=== PATIENT | male | born 1965 | race Caucasian/White ===

== ENCOUNTER → 2016-05-01 | Outpatient (REF) | payer OTHER ==
[~2016-05-01] MED LIST: ATOR1TAB21 PO; ELIQ5TAB PO; FOLI1TAB2 PO; IBUP800T23 PO; LISI40TAB PO; NICO14PA TD; PERCOCET PO; THIA50CA PO; VITMTA PO; XARE15TA PO
[2016-05-01 17:37] LABS: ALBUMIN/GLOBULIN RATIO 1.18 (1.00-1.93); BILIRUBIN,TOTAL 0.5 MG/DL (0.2-1.0); CREATININE FOR GFR 1.54 MG/DL (0.70-1.30); POTASSIUM SERUM 4.2 MEQ/L (3.5-5.1); TOTAL PROTEIN 7.4 GM/DL (6.4-8.2)
== END ==
LOC: M SFHCCAPE 08:42
PROVIDERS: ATTEND Physician Assistant
DX: I10 Essential (primary) hypertension (principal)

== ENCOUNTER → 2016-05-06 | Outpatient (REF) | payer OTHER | LOC: M SFHCCAPE 09:48 | PROVIDERS: ATTEND Physician Assistant | DX: R79.89 Other specified abnormal findings of blood chemistry (principal) ==

== ENCOUNTER → 2016-05-14 | Outpatient (CLI) | payer OTHER ==
--- NOTE | 2016-05-15 05:00 | REP ---
Clinical: Elevated renal function tests. Technique: Real time james scale ultrasound examination using curved array transducer. Findings: Right kidney is normal in contour, size, echogenicity, and reniform shape without hydronephrosis, nephrolithiasis, mass lesion or perinephric fluid. Right kidney measures 10.1 x 5.7 x 5.3 cm with a 2.8 cm simple lower pole cortical cyst. Left kidney is normal in contour, size, echogenicity, and reniform shape without hydronephrosis, nephrolithiasis, mass lesion or perinephric fluid. Left kidney measures 11.2 x 5.3 x 5.9 cm with two mid pole simple cortical/exophytic cysts measuring 2.9 cm and 1.7 cm diameter. Bladder is unremarkable and currently measures 10.8 x 5.5 x 7.4 cm. Impression: Few simple appearing bilateral cysts. Otherwise normal renal ultrasound. Signed by Yann Philip MD 05/15/2016 04:52 A
== END ==
LOC: M RAD 12:26
PROVIDERS: ATTEND Physician Assistant
DX: N28.1 Cyst of kidney, acquired (principal)

== ENCOUNTER → 2016-05-22 | Outpatient (CLI) | payer OTHER ==
--- NOTE | 2016-05-22 09:59 | REP ---
Radionuclide pulmonary ventilation and perfusion scan: The study is performed with DTPA aerosol radiolabeled with 1 mCi of technetium 99m followed by intravenous MAA radiolabeled with 5.5 mCi of technetium 95. Comparisons are the pulmonary artery CT angiogram dated 08/22/2015 and a PA and lateral chest performed today. There are no perfusion defects. There are no ventilation defects. Impression: Normal pulmonary VQ scan. No evidence of pulmonary embolus. Signed by Moy Pierre MD 05/22/2016 09:50 A
--- NOTE | 2016-05-22 10:00 | REP ---
PA and lateral chest: Comparison is 08/24/2015. The previous bibasilar infiltrates and previous bilateral pleural effusions have resolved. The lung aquino are clear. The cardiac size is normal The lucrecia, mediastinum, and bony thorax are unremarkable. Impression: Negative PA and lateral chest. Signed by Moy Pierre MD 05/22/2016 09:51 A
== END ==
LOC: M RAD 08:43
PROVIDERS: ATTEND Internal Medicine Pulmonary Disease
DX: R06.00 Dyspnea, unspecified (principal)

== ENCOUNTER → 2016-05-28 | Outpatient (CLI) | payer OTHER ==
--- NOTE | 2016-05-28 16:45 | ECHO ---
DATE OF PROCEDURE: 05/28/2016 AGE: 51 GENDER: Male HEIGHT: 68 inches WEIGHT: 215 pounds BODY SURFACE AREA: 211 sq m OUTPATIENT. REFERRING PHYSICIAN: Dr. Davila INDICATION: Dyspnea. MEASUREMENTS: 2D MEASUREMENTS: RV: 3.9 cm LV: 4.6 cm Septum: 1.1 cm Posterior wall: 1.0 cm Aortic root: 3.6 cm LA: 3.3 cm LVEF: 60% DOPPLER MEASUREMENTS: AV: 0.96 m/s LVOT: 0.86 m/s LVOT diameter: 2.2 cm MV-E: 45, A: 71, EA ratio: 0.6 Early mitral deceleration time: 268 ms E-prime: 5.3, A-prime: 8.5, E/E-prime ratio: 8.6 PV: 0.8 m/s Pulmonary artery acceleration time: 137 ms PASP: 21 mmHg IVC: 1.7 cm COMMENTS: Normal sinus rhythm without intraventricular conduction disturbance. Technically challenging study in light of the patient's body habitus but diagnostically useful information was still obtained. Normal cardiac chamber sizes and LV wall thickness. On real-time imaging from the parasternal and projections wall motion was symmetrical and normal. Normal-appearing mitral valvular apparatus and leaflet excursion with no posterior systolic buckling. Three equal size aortic cusps of normal thickness and cusp separation. Normal aortic root size. No apparent intracardiac mass or pericardial effusion. Color flow Doppler study taken from the parasternal and projection showed trace mitral and tricuspid but no aortic insufficiency (physiological findings). Guided continuous wave Doppler of his aortic valve showed a normal peak systolic velocity against left ventricle (LV) outflow tract obstruction. Pulsed and continuous wave Doppler of his LV inflow tract taken from the apical four-chamber projection showed normal diastolic filling velocities against mitral stenosis. There was slightly more prominent late diastolic / atrial dependent filling pattern in keeping with a degree of LV diastolic dysfunction. This was confirmed by a prolonged early mitral deceleration time and tissue Doppler of his mitral annulus. His estimated mean left atrial pressure however was well within normal limits using pulsed and tissue Doppler of mitral annulus. Pulsed and continuous wave Doppler of his pulmonary trunk showed a normal peak systolic velocity against right ventricle (RV) outflow tract obstruction. His pulmonary artery acceleration time was normal against an elevated pulmonary vascular resistance or pulmonary hypertension. We attempted to obtain further estimate of his right ventricular systolic pressure using guided continuous wave Doppler of his tricuspid valve but could not get a clear spectral envelope. His inferior vena cava was of normal size with normal respiratory collapse against an elevated central venous pressure. CONCLUSIONS: Normal left ventricular size, wall thickness and wall motion. Normal left atrial size but Doppler evidence of an impairment of LV diastolic relaxation, but currently normal estimated mean left atrial pressure. Normal right heart chamber sizes and estimated pulmonary arterial pressure.
== END ==
LOC: M CARPUL 08:32
PROVIDERS: ATTEND Internal Medicine Pulmonary Disease
DX: R06.00 Dyspnea, unspecified (principal)

== ENCOUNTER → 2016-07-11 | Outpatient (CLI) | payer OTHER ==
[2016-07-11 14:35] LABS: BASO # 0.1 K/mm3 (0.0-0.2); BASO % 1.3 % (0.0-1.0); EOS # 0.2 K/mm3 (0.0-0.50); EOS % 2.6 % (0.0-3.0); LARGE UNSTAINED CELL # 0.2 K/mm3 (0.0-0.4); LARGE UNSTAINED CELL % 2.5 % (0.0-4.0); LYMPH # 3.7 K/mm3 (1.5-4.5); LYMPH % 40.9 % (24.0-44.0); MEAN CORPUSCULAR HEMOGLOBIN 30.2 pg (27.0-33.0); MEAN CORPUSCULAR HGB CONC 35.4 g/dl (32.0-36.5); MEAN CORPUSCULAR VOLUME 85.3 fl (80.0-96.0); MONO # 0.7 K/mm3 (0.0-0.8); MONO % 7.4 % (0.0-5.0); NEUTROPHILS # 4.1 K/mm3 (1.8-7.7); NEUTROPHILS % 45.2 % (36.0-66.0); PLATELET COUNT, AUTOMATED 271 k/mm3 (150-450); RED CELL DISTRIBUTION WIDTH 12.9 % (11.5-14.5)
[2016-07-11 14:47] LABS: ALBUMIN/GLOBULIN RATIO 1.21 (1.00-1.93); ALKALINE PHOSPHATASE 64 U/L (45-117); ALT/SGPT 47 U/L (12-78); ANION GAP 7 MEQ/L (8-16); AST/SGOT 28 U/L (15-37); BILIRUBIN,TOTAL 0.5 MG/DL (0.2-1.0); BLOOD UREA NITROGEN 18 MG/DL (7-18); CALCIUM LEVEL 9.2 MG/DL (8.5-10.1); CARBON DIOXIDE LEVEL 30 MEQ/L (21-32); CHLORIDE LEVEL 101 MEQ/L (98-107); CREATININE FOR GFR 1.33 MG/DL (0.70-1.30); GLOMERULAR FILTRATION RATE > 60.0 (>56); GLUCOSE, FASTING 99 MG/DL (70-105); POTASSIUM SERUM 3.7 MEQ/L (3.5-5.1); SODIUM LEVEL 138 MEQ/L (136-145); TOTAL PROTEIN 7.3 GM/DL (6.4-8.2)
[2016-07-14 00:06] LABS: PROTEIN C ANTIGEN 90 % (60-150); PROTEIN S ANTIGEN FREE 180 % (57-157); PROTEIN S ANTIGEN TOTAL 121 % (60-150)
== END ==
LOC: M LAB 13:30
PROVIDERS: ATTEND Physician Assistant
DX: Z86.711 Personal history of pulmonary embolism (principal)

== ENCOUNTER → 2016-07-14 | Outpatient (CLI) | payer OTHER ==
--- NOTE | 2016-07-14 10:06 | REP ---
RENAL AND BLADDER ULTRASOUND: Real-time sonographic evaluation of the kidney is performed and demonstrates both kidneys to be normal in size and echotexture, right kidney measuring 10.7 x 6.1 x 5.8 cm and the left kidney 11.2 x 5.0 x 5.5 cm. There are no hydronephrosis bilaterally. A cyst in the lower right kidney measures 2.7 x 2.5 x 2.5 cm. A cyst in the left mid kidney measures 2.9 x 3.4 x 2.3 cm. The urinary bladder is mildly distended. Ureteral jets could not be visualized with Doppler color evaluation. The bladder measures 5.8 x 5.7 x 4.1 cm. The prostate appears prominent in size, 4.3 x 4.1 x 3.1 cm. IMPRESSION: No hydronephrosis. There is a cyst in each kidney. Suboptimal distention of the urinary bladder with no gross mass or calculus. Signed by Moy Littlejohn MD 07/14/2016 03:53 P
== END ==
LOC: M RAD 08:22
PROVIDERS: ATTEND Internal Medicine Nephrology
DX: N28.1 Cyst of kidney, acquired (principal); N32.89 Other specified disorders of bladder; I10 Essential (primary) hypertension; R31.9 Hematuria, unspecified; N18.2 Chronic kidney disease, stage 2 (mild)

== ENCOUNTER → 2016-11-05 | Outpatient (REF) | payer OTHER ==
[~2016-11-05] MED LIST changes: -FOLI1TAB2 PO; +FOLI1TAB4 PO; +IBUP1TAB7 PO; -IBUP800T23 PO
[2016-11-05 16:59] LABS: BASO # 0.1 K/mm3 (0.0-0.2); BASO % 0.9 % (0.0-1.0); EOS # 0.2 K/mm3 (0.0-0.50); EOS % 1.9 % (0.0-3.0); LARGE UNSTAINED CELL # 0.2 K/mm3 (0.0-0.4); LARGE UNSTAINED CELL % 1.8 % (0.0-4.0); LYMPH # 3.9 K/mm3 (1.5-4.5); LYMPH % 36.2 % (24.0-44.0); MEAN CORPUSCULAR HGB CONC 35.5 g/dl (32.0-36.5); MEAN CORPUSCULAR VOLUME 84.4 fl (80.0-96.0); MONO # 0.6 K/mm3 (0.0-0.8); NEUTROPHILS # 5.4 K/mm3 (1.8-7.7); NEUTROPHILS % 53.2 % (36.0-66.0); PLATELET COUNT, AUTOMATED 294 k/mm3 (150-450); WHITE BLOOD COUNT 10.2 K/mm3 (4.0-10.0)
[2016-11-05 17:48] LABS: ALBUMIN 3.8 GM/DL (3.2-5.2); BILIRUBIN,TOTAL 0.5 MG/DL (0.2-1.0); CALCIUM LEVEL 9.2 MG/DL (8.5-10.1); CREATININE FOR GFR 1.36 MG/DL (0.70-1.30); FREE T4 1.22 NG/DL (0.76-1.46); GLOMERULAR FILTRATION RATE 58.8 (>56); POTASSIUM SERUM 4.1 MEQ/L (3.5-5.1); TOTAL PROTEIN 7.6 GM/DL (6.4-8.2)
== END ==
LOC: M SFHCCAPE 08:18
PROVIDERS: ATTEND Physician Assistant
DX: E78.5 Hyperlipidemia, unspecified (principal)

== ENCOUNTER → 2016-11-26 | Outpatient (REF) | payer OTHER ==
[2016-11-26 15:43] LABS: SQUAMOUS EPITHELIAL CELL URINE SMALL AMOUNT /hpf (SMALL AMT); WBC, URINE 0-1 /hpf (0-3)
[2016-11-26 15:44] LABS: BACTERIA, URINE NONE SEEN; HYALINE CAST, URINE NONE SEEN /lpf (0-1); MICROSCOPIC EXAM PERFORMED
[2016-11-26 15:49] LABS: RBC, URINE 0-1 /hpf (0-3)
== END ==
LOC: M LAB REF 13:10
PROVIDERS: ATTEND Internal Medicine Nephrology
DX: R31.9 Hematuria, unspecified (principal)

== ENCOUNTER → 2017-01-14 | Outpatient (REF) | payer OTHER | LOC: M SFHCPLAZ 09:54 | PROVIDERS: ATTEND Family Medicine | DX: M1A.9XX0 Chronic gout, unspecified, without tophus (tophi) (principal); E66.9 Obesity, unspecified; R76.0 Raised antibody titer ==

== ENCOUNTER → 2017-01-30 | Outpatient (REF) | payer OTHER ==
[2017-02-05 00:08] LABS: APTT 24.3 sec (.); Anticardiolipin Ab, IgA <10 APL (.); DRVTT Screen Seconds 35.9 sec (.); PROTEIN C ANTIGEN 68 % (60-150); PROTEIN S ANTIGEN FREE 185 % (57-157); PROTEIN S ANTIGEN TOTAL 102 % (60-150)
== END ==
LOC: M LAB REF 13:14
PROVIDERS: ATTEND Internal Medicine Medical Oncology
DX: M32.9 Systemic lupus erythematosus, unspecified (principal)

== ENCOUNTER → 2017-06-25 | Outpatient (CLI) | payer OTHER | LOC: M RAD 08:04 | DX: I82.403 Acute embolism and thrombosis of unspecified deep veins of lower extremity, bilateral (principal) | CPT/HCPCS: 93970 ==

== ENCOUNTER → 2017-07-10 | Outpatient (CLI) | payer OTHER ==
[~2017-07-10] MED LIST changes: -ATOR1TAB21 PO; -ELIQ5TAB PO; -FOLI1TAB4 PO; -IBUP1TAB7 PO; +ISOVUE-300 61% 50ML VIAL (Q9967) As Ordered; +LIDOCAINE 2% MDV 20 ML VIAL As Ordered; -LISI40TAB PO; +MIDAZOLAM INJ 2 MG/2 ML VIAL (J2250) As Ordered; -NICO14PA TD; -PERCOCET PO; -THIA50CA PO; -VITMTA PO; -XARE15TA PO; +fentaNYL 100 MCG/2 ML INJECTION (J3010) As Ordered
== END | disposition home or self-care (01) ==
LOC: M IRPRO 09:19
DX: Z45.89 Encounter for adjustment and management of other implanted devices (principal); Z86.718 Personal history of other venous thrombosis and embolism; Z86.711 Personal history of pulmonary embolism; I12.9 Hypertensive chronic kidney disease with stage 1 through stage 4 chronic kidney disease, or unspecified chronic kidney disease; N18.9 Chronic kidney disease, unspecified
CPT/HCPCS: 37193

== ENCOUNTER → 2017-07-16 | Outpatient (REF) | payer OTHER ==
[2017-07-16 16:07] LABS: URIC ACID 6.7 MG/DL (3.5-7.2)
[2017-07-16 16:14] LABS: ESTIMATED AVERAGE GLUCOSE 123 MG/DL (60-110); HEMOGLOBIN A1c 5.9 %
== END ==
LOC: M SFHCPLAZ 10:40
DX: R73.03 Prediabetes (principal); M1A.9XX0 Chronic gout, unspecified, without tophus (tophi)
CPT/HCPCS: 83036

== ENCOUNTER → 2017-07-24 | Outpatient (REF) | payer OTHER ==
[2017-07-24 12:00] LABS: HEPATITIS C VIRUS ABY INDEX 0.1 INDEX (<0.8)
== END ==
LOC: M SFHCPLAZ 08:35
DX: Z11.59 Encounter for screening for other viral diseases (principal)

== ENCOUNTER → 2017-10-21 | Outpatient (REF) | payer OTHER ==
[2017-10-21 15:41] LABS: ANION GAP 6 MEQ/L (8-16); BLOOD UREA NITROGEN 13 MG/DL (7-18); CALCIUM LEVEL 9.4 MG/DL (8.5-10.1); CARBON DIOXIDE LEVEL 28 MEQ/L (21-32); CHLORIDE LEVEL 107 MEQ/L (98-107); CHOLESTEROL LEVEL 92 MG/DL (<200); CREATININE FOR GFR 1.08 MG/DL (0.70-1.30); GLOMERULAR FILTRATION RATE > 60.0 (>56); GLUCOSE, FASTING 94 MG/DL (70-100); HDL CHOLESTEROL 40 MG/DL (>40); NON-HDL-C 52 MG/DL; POTASSIUM SERUM 4.7 MEQ/L (3.5-5.1); SODIUM LEVEL 141 MEQ/L (136-145); TRIGLYCERIDES LEVEL 125 MG/DL (<150); URIC ACID 6.2 MG/DL (3.5-7.2)
[2017-10-21 16:43] LABS: ESTIMATED AVERAGE GLUCOSE 114 MG/DL (60-110); HEMOGLOBIN A1c 5.6 %
== END ==
LOC: M SFHCPLAZ 10:48
DX: R73.03 Prediabetes (principal); E78.5 Hyperlipidemia, unspecified; I12.9 Hypertensive chronic kidney disease with stage 1 through stage 4 chronic kidney disease, or unspecified chronic kidney disease; N18.3 Chronic kidney disease, stage 3 (moderate); M1A.9XX0 Chronic gout, unspecified, without tophus (tophi)
CPT/HCPCS: 84550

== ENCOUNTER → 2018-04-26 | Outpatient (REF) | payer OTHER ==
[~2018-04-26] MED LIST changes: +ATOR1TAB21 PO; +ELIQ5TAB PO; +FOLI1TAB11 PO; +IBUP1TAB7 PO; -ISOVUE-300 61% 50ML VIAL (Q9967) As Ordered; -LIDOCAINE 2% MDV 20 ML VIAL As Ordered; +LISI40TAB PO; -MIDAZOLAM INJ 2 MG/2 ML VIAL (J2250) As Ordered; +NICO14PA TD; +PERCOCET PO; +THIA50CA PO; +VITMTA PO; +XARE15TA PO; -fentaNYL 100 MCG/2 ML INJECTION (J3010) As Ordered
[2018-04-26 14:25] LABS: HEMOGLOBIN A1c 5.8 %
== END ==
LOC: M SFHCPLAZ 10:07
PROVIDERS: ATTEND Family Medicine
DX: R73.03 Prediabetes (principal)

== ENCOUNTER → 2018-06-16 | Outpatient (REF) | payer OTHER ==
[2018-06-16 13:52] LABS: BACTERIA, URINE AUTO 1+ (NEGATIVE); RBC, URINE AUTO 1 /HPF (0-3); SQUAMOUS EPITHELIAL CELL UR AU 0 /HPF (0-6); WBC, URINE AUTO 0 /HPF (0-3)
== END ==
LOC: M LAB REF 13:01
PROVIDERS: ATTEND Internal Medicine Nephrology
DX: R31.9 Hematuria, unspecified (principal)

== ENCOUNTER → 2018-07-28 | Outpatient (REF) | payer OTHER ==
[~2018-07-28] MED LIST changes: +LISI40TA52 PO; -LISI40TAB PO
[2018-07-28 12:31] LABS: ALBUMIN 4.1 GM/DL (3.2-5.2); ALT/SGPT 28 U/L (12-78); BILIRUBIN,TOTAL 0.4 MG/DL (0.2-1.0); BLOOD UREA NITROGEN 17 MG/DL (7-18); CALCIUM LEVEL 9.2 MG/DL (8.5-10.1); CARBON DIOXIDE LEVEL 26 MEQ/L (21-32); CHLORIDE LEVEL 107 MEQ/L (98-107); CPK CREATINE PHOSPHOKINASE 270 U/L (39-308); GLOMERULAR FILTRATION RATE > 60.0 (>56); GLUCOSE, FASTING 104 MG/DL (70-100); LDH LACTATE DEHYDROGENASE 158 U/L (87-241); POTASSIUM SERUM 4.3 MEQ/L (3.5-5.1); SODIUM LEVEL 138 MEQ/L (136-145); TOTAL PROTEIN 7.3 GM/DL (6.4-8.2); URIC ACID 5.9 MG/DL (3.5-7.2)
[2018-07-28 12:47] LABS: HEMOGLOBIN A1c 5.5 %
== END ==
LOC: M SFHCPLAZ 10:08
PROVIDERS: ATTEND Family Medicine
DX: R25.3 Fasciculation (principal); R73.03 Prediabetes; M1A.9XX0 Chronic gout, unspecified, without tophus (tophi)

== ENCOUNTER → 2018-11-22 | Outpatient (REF) | payer OTHER | LOC: M SFHCPLAZ 18:24 | PROVIDERS: ATTEND Dermatology | DX: L72.0 Epidermal cyst (principal) ==

== ENCOUNTER → 2019-03-29 | Outpatient (REF) | payer OTHER ==
[2019-03-29 11:27] LABS: HEMOGLOBIN A1c 5.2 %
[2019-03-29 11:42] LABS: ALBUMIN 3.8 GM/DL (3.2-5.2); ALT/SGPT 32 U/L (12-78); BILIRUBIN,TOTAL 0.5 MG/DL (0.2-1.0); BLOOD UREA NITROGEN 19 MG/DL (7-18); CALCIUM LEVEL 8.8 MG/DL (8.5-10.1); CARBON DIOXIDE LEVEL 28 MEQ/L (21-32); CHLORIDE LEVEL 106 MEQ/L (98-107); CHOLESTEROL LEVEL 109 MG/DL (<200); CHOLESTEROL RISK RATIO 2.534 (<5); CREATININE FOR GFR 1.17 MG/DL (0.70-1.30); GLOMERULAR FILTRATION RATE > 60.0 (>56); GLUCOSE, FASTING 135 MG/DL (70-100); HDL CHOLESTEROL 43 MG/DL (>40); LDL CHOLESTEROL 16 MG/DL (<100); NON-HDL-C 66 MG/DL; POTASSIUM SERUM 4.5 MEQ/L (3.5-5.1); SODIUM LEVEL 140 MEQ/L (136-145); TOTAL PROTEIN 7.2 GM/DL (6.4-8.2); TRIGLYCERIDES LEVEL 252 MG/DL (<150); URIC ACID 6.6 MG/DL (3.5-7.2)
[2019-03-31 05:48] LABS: Lyme Disease IgG/IgM Antibodie <0.91 ISR (0.00-0.90); Lyme Disease IgM Ab Quantitati <0.80 index (0.00-0.79)
== END ==
LOC: M SFHCPLAZ 08:10
PROVIDERS: ATTEND Physician Assistant
DX: N18.3 Chronic kidney disease, stage 3 (moderate) (principal); R73.03 Prediabetes; E78.5 Hyperlipidemia, unspecified; M1A.9XX0 Chronic gout, unspecified, without tophus (tophi); Z91.89 Other specified personal risk factors, not elsewhere classified

== ENCOUNTER → 2019-06-24 | Outpatient (REF) | payer OTHER ==
[2019-06-24 21:21] LABS: CHLAMYDIA DNA AMPLIFICATION NEGATIVE (NEGATIVE); GC DNA AMPLIFICATION NEGATIVE (NEGATIVE)
== END ==
LOC: M SFHCPLAZ 16:54
PROVIDERS: ATTEND Physician Assistant
DX: Z20.2 Contact with and (suspected) exposure to infections with a predominantly sexual mode of transmission (principal)

== ENCOUNTER → 2020-05-14 | Outpatient (REF) | payer OTHER ==
[2020-05-14 11:12] LABS: HEMATOCRIT 46.3 % (42.0-52.0); HEMOGLOBIN 15.3 g/dl (13.5-17.5); MEAN CORPUSCULAR HEMOGLOBIN 28.9 pg (27.0-33.0); MEAN CORPUSCULAR VOLUME 87.5 fl (80.0-96.0); PLATELET COUNT, AUTOMATED 224 10^3/uL (150-450); RED BLOOD COUNT 5.29 10^6/uL (4.30-6.10); WHITE BLOOD COUNT 9.5 10^3/uL (4.0-10.0)
[2020-05-14 11:45] LABS: ALBUMIN 3.5 GM/DL (3.2-5.2); ALT/SGPT 34 U/L (12-78); BILIRUBIN,TOTAL 0.4 MG/DL (0.2-1.0); BLOOD UREA NITROGEN 14 MG/DL (7-18); CARBON DIOXIDE LEVEL 28 MEQ/L (21-32); CHLORIDE LEVEL 104 MEQ/L (98-107); CHOLESTEROL LEVEL 128 MG/DL (<200); CHOLESTEROL RISK RATIO 3.121 (<5); CREATININE FOR GFR 1.19 MG/DL (0.70-1.30); GLOMERULAR FILTRATION RATE > 60.0 (>56); GLUCOSE, FASTING 134 MG/DL (70-100); HDL CHOLESTEROL 41 MG/DL (>40); LDL CHOLESTEROL 12 MG/DL (<100); NON-HDL-C 87 MG/DL; POTASSIUM SERUM 4.6 MEQ/L (3.5-5.1); SODIUM LEVEL 139 MEQ/L (136-145); TOTAL PROTEIN 6.9 GM/DL (6.4-8.2); TRIGLYCERIDES LEVEL 373 MG/DL (<150); URIC ACID 6.4 MG/DL (3.5-7.2)
== END ==
LOC: M SFHCPLAZ 08:43
PROVIDERS: ATTEND Physician Assistant
DX: J44.9 Chronic obstructive pulmonary disease, unspecified (principal); I10 Essential (primary) hypertension; E78.5 Hyperlipidemia, unspecified; M1A.9XX0 Chronic gout, unspecified, without tophus (tophi)

== ENCOUNTER → 2020-12-25 | Outpatient (REF) | payer OTHER ==
[2020-12-25 15:14] LABS: COMPLEMENT C3 156 MG/DL (90-180); COMPLEMENT C4 38 MG/DL (10-40); HEPATITIS B SURFACE ANTIBODY NEGATIVE (POSITIVE); IMMUNOGLOBULIN G 893 MG/DL (681-1648); IMMUNOGLOBULIN M 79.5 MG/DL (40-230); TOTAL PROTEIN 7.1 GM/DL (6.4-8.2)
[2020-12-25 15:24] LABS: HEPATITIS B SURFACE ANTIGEN NEGATIVE (NEGATIVE)
[2020-12-25 15:52] LABS: HEPATITIS B CORE ANTIBODY IGM NEGATIVE (NEGATIVE)
[2020-12-26 11:24] LABS: ALBUMIN 3.84 GM/DL (3.29-5.55); ALBUMIN % 54.1 % (55.8-66.1); ALPHA-1-GLOBULIN % 4.5 % (2.9-4.9); ALPHA-1-GLOBULINS 0.32 GM/DL (0.17-0.41)
[2020-12-26 11:25] LABS: ALPHA-2-GLOBULINS 0.96 GM/DL (0.42-0.99); ALPHA-2-GLOBULINS % 13.5 % (7.1-11.8); BETA-2-GLOBULINS 0.59 GM/DL (0.19-0.55); BETA-2-GLOBULINS % 8.3 % (3.2-6.5); GAMMA GLOBULIN % 12.6 % (11.1-18.8); GAMMA GLOBULINS 0.89 GM/DL (0.65-1.58)
[2020-12-26 11:30] LABS: IMMUNOTYPING SERUM IGG ABNORMAL (NORMAL); IMMUNOTYPING SERUM LAMBDA ABNORMAL (NORMAL)
== END ==
LOC: M LAB REF 13:03
PROVIDERS: ATTEND Internal Medicine Nephrology
DX: R80.9 Proteinuria, unspecified (principal)

== ENCOUNTER → 2020-12-28 | Outpatient (REF) | payer OTHER ==
[2020-12-28 13:29] LABS: CREATININE, URINE 65.4 MG/DL; URINE TOTAL PROTEIN 62.2 MG/DL (0-12)
[2020-12-28 20:25] LABS: CREATININE 24 HOUR, URINE 1824.6 MG/24HR (950-2500); TOTAL PROTEIN 24 HOUR URINE 1735.3 MG/24HR (50-150)
== END ==
LOC: M LAB REF 12:57
PROVIDERS: ATTEND Internal Medicine Nephrology
DX: R80.9 Proteinuria, unspecified (principal)

== ENCOUNTER → 2021-03-27 | Outpatient (CLI) | payer OTHER ==
[~2021-03-27] MED LIST changes: +ALLO100T PO; +ASPI81TA26 PO; +FLUTISP NARES; +LISI40TA4 PO
--- NOTE | 2021-03-27 10:46 | REP ---
INDICATION: SCREENING. COMPARISON: CT angio chest 08/22/2015 the only prior TECHNIQUE: Axial noncontrast images from the thoracic inlet to the upper abdomen using low-dose lung screening technique (LDCT). As per the protocol only lung window images were sent to the read station for interpretation FINDINGS: No abnormal nodules, masses, or opacities have developed. Grossly, the mediastinum and pulmonary lucrecia are unchanged. Grossly, the imaged upper abdomen and imaged osseous structures are unchanged. IMPRESSION: Lung rads category 1 low-dose screening CT examination of the lungs. Follow-up as per the revised Fleischner society criteria. <Electronically signed by Sanju Le > 03/27/21 [id number]
== END ==
LOC: M RAD 08:53
PROVIDERS: ATTEND Internal Medicine Medical Oncology
DX: D47.2 Monoclonal gammopathy (principal)

== ENCOUNTER → 2022-02-20 | Outpatient (REF) | payer OTHER ==
[2022-02-20 18:24] LABS: TOTAL PROTEIN,RANDOM URINE 279.7 MG/DL (0.0-12.0)
[2022-02-20 18:25] LABS: TOTAL PROTEIN 6.7 GM/DL (6.4-8.2)
[2022-02-27 13:58] LABS: ALBUMIN % 51.6 % (55.8-66.1); ALPHA-1-GLOBULIN % 5.4 % (2.9-4.9)
[2022-02-27 13:59] LABS: ALBUMIN 3.46 GM/DL (3.29-5.55); ALPHA-1-GLOBULINS 0.36 GM/DL (0.17-0.41); ALPHA-2-GLOBULINS 1.03 GM/DL (0.42-0.99); ALPHA-2-GLOBULINS % 15.4 % (7.1-11.8); BETA-1-GLOBULINS % 7.4 % (4.7-7.2); BETA-2-GLOBULINS 0.57 GM/DL (0.19-0.55); BETA-2-GLOBULINS % 8.5 % (3.2-6.5); GAMMA GLOBULIN % 11.7 % (11.1-18.8); GAMMA GLOBULINS 0.78 GM/DL (0.65-1.58)
[2022-02-27 14:40] LABS: IMMUNOTYPING SERUM IGG ABNORMAL (NORMAL); IMMUNOTYPING SERUM LAMBDA ABNORMAL (NORMAL)
== END ==
LOC: M LAB REF 16:56
PROVIDERS: ATTEND Internal Medicine Nephrology
DX: D47.2 Monoclonal gammopathy (principal)

== ENCOUNTER → 2022-03-25 | Outpatient (POV) | payer OTHER ==
[~2022-03-25] VITALS: Ht 172.7 cm; Wt 93.6 kg
[2022-03-25 07:45] VITALS: BP 125/87
== END ==
LOC: M IRPOV 07:34
PROVIDERS: ATTEND Radiology Diagnostic Radiology
DX: I10 Essential (primary) hypertension (principal); D47.2 Monoclonal gammopathy; E11.9 Type 2 diabetes mellitus without complications; E78.5 Hyperlipidemia, unspecified; R31.29 Other microscopic hematuria; R80.9 Proteinuria, unspecified; Z79.82 Long term (current) use of aspirin; Z79.899 Other long term (current) drug therapy; Z86.16 Personal history of COVID-19; Z87.891 Personal history of nicotine dependence; Z88.8 Allergy status to other drugs, medicaments and biological substances

== ENCOUNTER → 2022-05-05 | Outpatient (CLI) | payer OTHER ==
[2022-05-05 15:20] LABS: C REACTIVE PROTEIN QUANTITATIV < 0.40 MG/DL (<1.0)
[2022-05-05 15:22] LABS: ALBUMIN 3.5 G/DL (3.2-5.2); ALKALINE PHOSPHATASE 49 U/L (46-116); ALT/SGPT 29 U/L (7.0-40); AST/SGOT 25 U/L (<34); BILIRUBIN,TOTAL 0.5 MG/DL (0.3-1.2); BLOOD UREA NITROGEN 18 MG/DL (9-23); CALCIUM LEVEL 8.9 MG/DL (8.5-10.1); CARBON DIOXIDE LEVEL 25 MMOL/L (20-31); CHLORIDE LEVEL 106 MMOL/L (98-107); CHOLESTEROL LEVEL 122 MG/DL (<200); CHOLESTEROL RISK RATIO 2.76 (<5); CREATININE FOR GFR 1.14 MG/DL (0.70-1.30); GLOMERULAR FILTRATION RATE > 60.0 (>56); GLUCOSE, FASTING 122 MG/DL (60-100); HDL CHOLESTEROL 44.2 MG/DL (>40); LDL CHOLESTEROL 18.2 MG/DL (<100); NON-HDL-C 78 MG/DL; POTASSIUM SERUM 4.5 MMOL/L (3.5-5.1); SODIUM LEVEL 139 MMOL/L (136-145); TOTAL PROTEIN 7.1 G/DL (5.7-8.2); TRIGLYCERIDES LEVEL 298 MG/DL (<150)
[2022-05-05 15:23] LABS: HEMATOCRIT 46.8 % (42.0-52.0); HEMOGLOBIN 15.6 g/dl (13.5-17.5); MEAN CORPUSCULAR HEMOGLOBIN 29.9 pg (27.0-33.0); MEAN CORPUSCULAR HGB CONC 33.3 g/dl (32.0-36.5); MEAN CORPUSCULAR VOLUME 89.7 fl (80.0-96.0); PLATELET COUNT, AUTOMATED 243 10^3/uL (150-450); RED BLOOD COUNT 5.22 10^6/uL (4.30-6.10); WHITE BLOOD COUNT 10.6 10^3/uL (4.0-10.0)
[2022-05-05 15:24] LABS: THYROXINE (T4) 12.5 UG/DL (4.5-10.9); TOTAL 25(OH) VITAMIN D 13.6 NG/ML (20.0-100.0); VITAMIN B12 LEVEL 435 PG/ML (211-911)
[2022-05-05 15:25] LABS: THYROID STIMULATING HORMONE 2.714 uIU/ML (0.55-4.78)
[2022-05-05 15:38] LABS: HEMOGLOBIN A1c 5.4 % (4.0-6.0)
[2022-05-06 18:07] LABS: FREE KAPPA LIGHT CHAINS SERUM 32.7 mg/L (3.3-19.4); FREE LAMBDA LIGHT CHAINS SERUM 31.2 mg/L (5.7-26.3); INSULIN LEVEL 51.8 uIU/mL (2.6-24.9); KAPPA/LAMBDA RATIO SERUM 1.05 (0.26-1.65); LIPOPROTEIN (a) 141.1 nmol/L (<75.0)
== END ==
LOC: M PLALAB 10:01
PROVIDERS: ATTEND Internal Medicine Hematology
DX: I10 Essential (primary) hypertension (principal); Z12.11 Encounter for screening for malignant neoplasm of colon

== ENCOUNTER → 2022-06-06 | Outpatient (CLI) | payer OTHER | LOC: M RAD 07:59 | PROVIDERS: ATTEND Internal Medicine Hematology | DX: Z12.2 Encounter for screening for malignant neoplasm of respiratory organs (principal); Z87.891 Personal history of nicotine dependence; R91.1 Solitary pulmonary nodule ==

== ENCOUNTER → 2023-11-25 | Outpatient (CLI) | payer OTHER ==
[2023-11-25 14:22] LABS: HEMATOCRIT 43.8 % (42.0-52.0); MEAN CORPUSCULAR HEMOGLOBIN 29.9 pg (27.0-33.0); MEAN CORPUSCULAR HGB CONC 34.2 g/dl (32.0-36.5); MEAN CORPUSCULAR VOLUME 87.3 fl (80.0-96.0); PLATELET COUNT, AUTOMATED 272 10^3/uL (150-450); RED BLOOD COUNT 5.02 10^6/uL (4.30-6.10); WHITE BLOOD COUNT 10.5 10^3/uL (4.0-10.0)
[2023-11-25 14:30] LABS: C REACTIVE PROTEIN QUANTITATIV 0.7 MG/DL (<1.0)
[2023-11-25 14:32] LABS: ALBUMIN 3.9 G/DL (3.2-5.2); BILIRUBIN,TOTAL 0.6 MG/DL (0.3-1.2); CALCIUM LEVEL 9.8 MG/DL (8.5-10.1); CHOLESTEROL RISK RATIO 3.24 (<5); CREATININE FOR GFR 1.38 MG/DL (0.70-1.30); GLOMERULAR FILTRATION RATE 56.3 (>56); HDL CHOLESTEROL 33.6 MG/DL (>40); LDL CHOLESTEROL 20.4 MG/DL (<100); NON-HDL-C 75.4 MG/DL; PSA SCREENING 0.75 NG/ML (< 4.00); THYROID STIMULATING HORMONE 2.423 uIU/ML (0.55-4.78); TOTAL 25(OH) VITAMIN D 35.4 NG/ML (20.0-100.0); TOTAL PROTEIN 7.5 G/DL (5.7-8.2)
[2023-11-25 14:34] LABS: FREE T4 1.28 NG/DL (0.89-1.76)
[2023-11-25 14:54] LABS: HEMOGLOBIN A1c 5.4 % (4.0-6.0)
[2023-11-26 06:37] LABS: T P ELECTROPHORESIS SO 7.3 g/dL (6.1-8.1)
[2023-11-26 14:43] LABS: FREE LAMBDA LIGHT CHAINS SERUM 34.4 mg/L (5.7-26.3); KAPPA/LAMBDA RATIO SERUM 1.13 (0.26-1.65)
[2023-11-26 16:52] LABS: ALBUMIN SPEP 3.9 g/dL (3.8-4.8); ALPHA-1-GLOBULINS SO 0.3 g/dL (0.2-0.3); ALPHA-2-GLOBULINS SO 0.9 g/dL (0.5-0.9); BETA 2 GLOBULIN 0.6 g/dL (0.2-0.5); BETA-GLOBULIN SO 0.5 g/dL (0.4-0.6)
== END ==
LOC: M PLALAB 09:29
PROVIDERS: ATTEND Internal Medicine Hematology
DX: Z12.5 Encounter for screening for malignant neoplasm of prostate (principal); E78.5 Hyperlipidemia, unspecified

== ENCOUNTER → 2024-11-29 | Outpatient (REF) | payer OTHER ==
[~2024-11-29] MED LIST changes: +LISI40TA10 PO; -LISI40TA4 PO
== END ==
LOC: M SFHCPLAZ 09:55
PROVIDERS: ATTEND Family Medicine
DX: Z53.9 Procedure and treatment not carried out, unspecified reason (principal)